=== PATIENT | female | born 1980 | race Caucasian/White ===

== ENCOUNTER 2017-02-10 06:20 | Day surgery (SDC) | payer MEDICAID ==
[2017-02-10 06:44] VITALS: BMI 35.9
[2017-02-10] MEDS ORDERED: Propofol 10 mg/ml Inj (20 ML) ONE ×2 (08:05→08:14)
[2017-02-10 08:39] VITALS: TEMP 97.7; O2SAT 100
[2017-02-10 09:43] VITALS: BP 122/62; PULSE 59; RESP 14
== END 2017-02-10 09:42 | disposition home or self-care (01) ==
LOC: C.ENDO 06:20
PROVIDERS: ATTEND Internal Medicine
DX: K57.30 Diverticulosis of large intestine without perforation or abscess without bleeding (principal); K59.00 Constipation, unspecified; K64.8 Other hemorrhoids; K22.10 Ulcer of esophagus without bleeding; K29.50 Unspecified chronic gastritis without bleeding; K44.9 Diaphragmatic hernia without obstruction or gangrene; R10.13 Epigastric pain; Z87.19 Personal history of other diseases of the digestive system
CPT/HCPCS: 43239; 45378; 88305; 88312; 88313; 88342; J2001; J2704; J3010